=== PATIENT | female | born 1995 | race Caucasian/White ===

== ENCOUNTER → 2017-12-04 | Outpatient (REF) | payer OTHER ==
[2017-12-04 15:34] LABS: CHLAMYDIA DNA AMPLIFICATION NEGATIVE (NEGATIVE); GC DNA AMPLIFICATION NEGATIVE (NEGATIVE)
== END ==
LOC: M SFHCADAM 13:26
DX: Z01.419 Encounter for gynecological examination (general) (routine) without abnormal findings (principal); Z12.4 Encounter for screening for malignant neoplasm of cervix